=== PATIENT | female | born 1995 | race Two or more races ===

== ENCOUNTER 2017-06-11 09:42 | Outpatient (CLI) | payer OTHER ==
[2017-06-11 10:24] LABS: APPEARANCE,URINE CLOUDY; BILIRUBIN,URINE NEGATIVE (NEGATIVE); GLUCOSE, URINE NEGATIVE (NEGATIVE); KETONES,URINE NEGATIVE (NEGATIVE); LEUKOCYTE ESTERASE,URINE MODERATE (NEGATIVE); NITRITE,URINE NEGATIVE (NEGATIVE); PROTEIN,URINE NEGATIVE (NEGATIVE); URINE SPECIFIC GRAVITY 1.017; UROBILINOGEN,URINE NEGATIVE mg/dL (<2.0)
[2017-06-11 10:29] LABS: AMNISURE (ROM) NEGATIVE (NEGATIVE)
[2017-06-11 10:39] LABS: URINE BARBITURATES SCREEN NEGATIVE; URINE METHADONE SCREEN NEGATIVE; URINE OPIATES LOW NEGATIVE; URINE PHENCYCLIDINE SCREEN NEGATIVE
--- NOTE | 2017-06-11 10:47 | Non Stress Test Report ---
Non Stress Test Datetime Report Generated by CPN: 06/11/2017 10:46 DEMOGRAPHIC EGA NST: 39.3 INDICATION Indication for Study: Ordered by Provider VITAL SIGNS Temperature - NST: 98.7 Pulse - NST: 101 RESP - NST: 18 NBPSYS NST: 122 NBPDIA NST: 76 MONITORING Monitor Explained: Monitor Explained; Test Explained; Patient Verbalized Understanding Time on Monitor: 06/11/2017 09:58 Time off Monitor: 06/11/2017 10:33 NST Duration: 35 NST INTERVENTIONS NST Interventions: PO Hydration; Reposition Patient BABY A: [id number] BABY A Movement : Present Contraction Frequency : None traced Accelerations : 15X15 Decelerations : None Variability : Moderate 6-25bpm NST Review: Meets Criteria for Reactive NST NST Review and Verified By : Antonio Mann RN NST Results: Reactive NST REPORT Report Trigger: Send Report
== END 2017-06-11 10:44 | disposition home or self-care (01) ==
LOC: LC 09:42
PROVIDERS: ATTEND Obstetrics & Gynecology Gynecology
PROC: 4A1HXCZ Monitoring of Products of Conception, Cardiac Rate, External Approach (ICD-10-PCS; principal; 2017-06-11)
DX: Z34.03 Encounter for supervision of normal first pregnancy, third trimester (principal); Z3A.39 39 weeks gestation of pregnancy
CPT/HCPCS: 59025; 80307; 81005; 84112

== ENCOUNTER 2017-06-12 17:45 | Inpatient (IN) | payer OTHER ==
[2017-06-12 18:32] LABS: APPEARANCE,URINE SLIGHTLY-CLOUDY; BILIRUBIN,URINE NEGATIVE (NEGATIVE); GLUCOSE, URINE NEGATIVE (NEGATIVE); KETONES,URINE NEGATIVE (NEGATIVE); LEUKOCYTE ESTERASE,URINE SMALL (NEGATIVE); NITRITE,URINE NEGATIVE (NEGATIVE); PROTEIN,URINE NEGATIVE (NEGATIVE); URINE SPECIFIC GRAVITY 1.004; UROBILINOGEN,URINE NEGATIVE mg/dL (<2.0)
[2017-06-12 18:39] LABS: AMNISURE (ROM) POSITIVE (NEGATIVE)
[2017-06-12 18:49] LABS: URINE BARBITURATES SCREEN NEGATIVE; URINE METHADONE SCREEN NEGATIVE; URINE OPIATES LOW NEGATIVE; URINE PHENCYCLIDINE SCREEN NEGATIVE
[2017-06-12] MEDS ORDERED: RINGERS SOLUTION,LACTATED 1,000 ML IV PRN (18:49)
[2017-06-12] MEDS ORDERED: OXYTOCIN/NORMAL SALINE 20 UNIT/1,000 ML RTUINJ IV PRN ×2 (18:49→22:55)
[2017-06-12] MEDS ORDERED: NALBUPHINE HCL INJ 10 MG/1 ML AMPULE IV PRN (18:50)
[2017-06-12] MEDS ORDERED: PROMETHAZINE HCL INJ 25 MG/1 ML VIAL IV PRN (18:50)
[2017-06-12] MEDS ORDERED: LIDOCAINE 1% INJ-PF (10 MG/ML) 30 ML SDV ONE (19:07)
[2017-06-12] MEDS ORDERED: MISOPROSTOL 0.2 MG TABLET ONE (19:07)
[2017-06-12] MEDS ORDERED: OXYTOCIN/NORMAL SALINE 20 UNIT/1,000 ML RTUINJ ONE ×2 (19:07→20:50)
[2017-06-12 19:31] LABS: ABSOLUTE EOSINOPHILS # (AUTO) 0.1 10^3/uL (0.0-0.6); ABSOLUTE LYMPHOCYTES (AUTO) 1.9 10^3/uL (0.5-4.7); ABSOLUTE MONOCYTES (AUTO) 1.4 10^3/uL (0.1-1.4); ABSOLUTE NEUT (AUTO) 13.1 10^3/uL (1.7-8.2); BASOPHILS % (AUTO) 0.3 % (0-2); EOSINOPHILS % (AUTO) 0.4 % (0-6); HEMATOCRIT 30.8 % (36.0-47.0); HEMOGLOBIN 10.2 g/dL (12.0-15.5); HGB HCT DIFFERENCE -0.2; LYMPHOCYTES % (AUTO) 11.3 % (13-45); MEAN CORPUSCULAR HGB CONC 33.2 g/dL (32.0-36.0); MEAN CORPUSCULAR VOLUME 84 fl (80-97); MONOCYTES % (AUTO) 8.5 % (3-13); RED BLOOD COUNT 3.65 10^6/uL (3.72-5.28); RED CELL DISTRIBUTION WIDTH 13.2 % (11.5-14.0); SEGMENTED NEUTROPHILS % (AUTO) 79.5 % (42-78); WHITE BLOOD COUNT 16.5 10^3/uL (4.0-10.5)
[2017-06-12] MEDS ORDERED: NALBUPHINE HCL INJ 10 MG/1 ML AMPULE ONE (20:50)
[2017-06-12] MEDS ORDERED: FENTANYL/BUPIVACAINE/NS/PF 0 MCG/0 ML RTUINJ EPI ONE (21:26)
[2017-06-12] MEDS ORDERED: BUPIVACAINE HCL 0.25 % INJ/PF (2.5 MG/1 ML) 30 ML VIAL ONE (21:26)
[2017-06-12] MEDS ORDERED: EPHEDRINE SULFATE INJ 50 MG/1 ML AMPULE ONE (21:26)
[2017-06-12] MEDS ORDERED: DIBUCAINE 1% OINTMENT 28 GM TP PRN (22:55)
[2017-06-12] MEDS ORDERED: DIPH/PERTUSS(ACELL)/TETANUS VAC/PF 0.5 ML SYR (>=10YO) IM PRN (22:55)
[2017-06-12] MEDS ORDERED: ZOLPIDEM TARTRATE 5 MG TABLET PO PRN (22:55)
[2017-06-12] MEDS ORDERED: BENZOCAINE/MENTHOL AEROSOL SPRAY 56 ML TOP PRN (22:55)
[2017-06-12] MEDS ORDERED: MEASLES,MUMPS&RUBELLA VACC/PF 0.5 ML VIAL SUBCUT PRN (22:55)
[2017-06-12] MEDS ORDERED: IBUPROFEN 800 MG TABLET PO PRN (22:55)
[2017-06-12] MEDS ORDERED: ACETAMINOPHEN 325 MG TABLET PO PRN (22:56)
[2017-06-12] MEDS ORDERED: ACETAMINOPHEN 325 MG TABLET ONE (22:58)
[2017-06-12] MEDS ORDERED: ONDANSETRON HCL 8 MG TABLET PO PRN (22:58)
[2017-06-12] MEDS ORDERED: DIPHENHYDRAMINE HCL 25 MG CAPSULE PO PRN (22:59)
[2017-06-12] MEDS ORDERED: FAMOTIDINE 20 MG TABLET PO PRN (22:59)
[2017-06-12] MEDS ORDERED: PROMETHAZINE HCL 25 MG TABLET PO PRN (23:00)
[2017-06-12] MEDS ORDERED: HYDROCODONE/ACETAMINOPHEN 5-325 MG TABLET ONE (23:31)
[2017-06-12] MEDS: HYDROCODONE/ACETAMINOPHEN 5-325 MG TABLET PO PRN (23:32)
--- NOTE | 2017-06-12 23:46 | Delivery Summary ---
Del Sum A-C Datetime Report Generated by CPN: 06/12/2017 23:45 DELIVERY PERSONNEL DELIVERY PERSONNEL: [id number] Delivery Doctor:: Dr. Blackman Labor and Delivery Nurse:: Tashi Stewart RN Labor and Delivery Nurse:: Breanna Simon RN Social Studies Teacher/FOOD MIXER REPAIRER: Rosalinaruddy Jean, ST MATERNAL INFORMATION Delivery Anesthesia: None Medications After Delivery: Pitocin Bolus-Please Comment Meds After Delivery Comment: 20 units pitocin in 1000mL NSS Estimated Blood Loss (ml): 150 Maternal Complications: Precipitous Labor (<3hrs) Provider Comments: Pt C_P. Head delivered straight OA. Loose nuchal x 1 reduced. Anterior and posterior shoulder followed by rest of body. Baby placed on mom's abdomen. After 1 min, cord clamped x 2 and cut by FOB. Cord blood collected. Placenta delivered intact with 3VC. Lacs repaired as above. LABOR SUMMARY EDC: 06/15/2017 00:00 No. Babies in Womb: 1 Attempted: No Labor Anesthesia: None LABOR INFORMATION Reason for Induction: Not Applicable Onset of Labor: 06/12/2017 19:25 Complete Dilatation: 06/12/2017 21:56 Oxytocin: Augmentation Group B Beta Strep: negative Antibiotics # of Doses: 0 Antibiotics Time of Last Dose: n/a Steroids Given: None Reason Steroids Not Administered: Not Applicable MEMBRANES Membranes Rupture Method: Spontaneous Rupture of Membranes: 06/11/2017 08:00 Length of Rupture (hr): 38.38 Amniotic Fluid Color: Clear Amniotic Fluid Amount: Small Amniotic Fluid Odor: Normal STAGES OF LABOR Stage 1 hr: 2 Stage 1 min: 31 Stage 2 hr: 0 Stage 2 min: 27 Stage 3 hr: 0 Stage 3 min: 5 Total Time in Labor hr: 3 Total Time in Labor min: 3 VAGINAL DELIVERY Episiotomy: None Laceration #1: Perineal; Vaginal Other Laceration: 1st degree jamie-urethral Laceration Repair: Yes Laceration Repair Note: 1st degree vaginal lac repaired with 2.0 Vicyl in running fashion and periurethral lacs repaired with 3.0 Vicryl in interrupted fashion Sponge Count Correct: Yes Sharps Count Correct: Yes CSECTION DELIVERY Primary Indication: N/A Secondary Indication: N/A CSection Incidence: N/A Labor: N/A Elective: N/A CSection Incision: N/A BABY A INFORMATION Infant Delivery Date/Time: 06/12/2017 22:23 Method of Delivery: Vaginal Born in Route : No : N/A Forceps: N/A Vacuum Extraction: N/A Shoulder Dystocia : No PRESENTATION/POSITION BABY A Presentation: Cephalic Cephalic Presentation: Vertex Vertex Position: occipital anterior Breech Presentation: N/A PLACENTA INFORMATION BABY A Placenta Delivery Time : 06/12/2017 22:28 Placenta Method of Delivery: Spontaneous Placenta Status: Delivered SCORES BABY A Heart Rate 1 min: >100 bpm Resp Effort 1 min: Good Cry Reflex Irritability 1 min: Cough or Sneeze or Pulls Away Muscle Tone 1 min: Active Motion Color 1 min: Blue/Pale SCORE 1 MIN: 8 Heart Rate 5 min: >100 bpm Resp Effort 5 min: Good Cry Reflex Irritability 5 min: Cough or Sneeze or Pulls Away Muscle Tone 5 min: Active Motion Color 5 min: Body [place], Extremities Blue SCORE 5 MIN: 9 INFANT INFORMATION BABY A Gestational Age at Delivery: 39.4 Gestational Status: Full Term- 39- 40.6 Weeks Outcome : Liveborn Infant Condition : Stable Infant Sex: Male IDENTIFICATION BABY A Infant Verification Date/Time: 06/12/2017 23:00 ID Band Number: [id number] Mother's Name Verified: Yes Infant RN Verifying : KQing Wittco,RN Additional Verifying Personnel: [employer] RN WEIGHT/LENGTH BABY A Birthweight (gm): 2840 Weight (lb): 6 Weight (oz): 4 Infant Length (in): 19.75 Infant Length (cm): 50.17 CORD INFORMATION BABY A No. Cord Vessels: 3 Nuchal Cord : Around Neck x1, Loose Cord Blood Taken: Yes-For Eval (Mom's Blood Type - or O+) Infant Suction: Mouth; Nose ASSESSMENT BABY A Infant Complications: None Physical Findings- Other: see nursery assessment Respirations: Appears Normal Skin to Skin: No Coiled Coil Inspector/ALS Called : No Infant Care By: K. Alfred, RN Transferred To: Remains with Mother BABY B INFORMATION : N/A SIGNATURES Signature: with User ID: [email or web address]
--- NOTE | 2017-06-12 23:46 | Warning Signs in Babies ---
VOD Warning Signs Datetime Report Generated by [facility]: 06/12/2017 23:45 VOD#608 -Warning Signs in Babies: Needs to be viewed. (06/11/2017 10:39:Tashi Stewart)
--- NOTE | 2017-06-13 00:51 | Admission Physical ---
Datetime Report Generated by CPN: 06/13/2017 00:50 CURRENT ADMISSION Chief Complaint: Suspected Ruptured Membranes Chief Complaint Other: Was seen 1 day ago for ?LOF. Amnisure neg. Presents with same complaint today and Amnisure pos. Indication for Induction: PROM Indication for Induction: Term, Intrauterine ; No Active Labor; Ruptured Membranes; Induction of Labor Admit Plan: Admit to Unit; Initiate Labor Induction Protocol ALLERGIES Medication Allergies: No Medication Allergies: No Known Allergies (06/12/2017) Medication Allergies: No Known Allergies (06/11/2017) Latex: No Latex Allergies Food Allergies: no Environmental Allergies: no OBSTETRICAL HISTORY EDC: 06/15/2017 00:00 : 2 Para: 1 Livin Gestational Diabetes: No Rh Sensitization: No Incompetent Cervix: No ACE: No Infertility: No ART Treatment: No Uterine Anomaly: No IUGR: No Hx Previous C/S: No Macrosomia: No Hx Loss/Stillborn: No PIH: No Hx : No Placenta Previa/Abruption: No Depression/PP Depression: No PTL/PROM: No Post Hemorrhage: No Current Procedures: Ultrasound; NST Obstetrical History Comments: G1 06/05/2012 born at 36.6 SEE RECORDS Alcohol: No Marijuana : No Cocaine: No Other Illicit Drugs: No Cigarettes: Former Smoker. [id number] MEDICAL HISTORY Diabetes: No Blood Transfusion: No Pulmonary Disease (Asthma, TB): No Breast Disease: No Hypertension: No Slot Attendant Surgery: No Heart Disease: No Hosp/Surgery: Yes Autoimmune Disorder: No Anesthetic Complications: No Kidney Disease: No Abnormal Pap Smear: No Neuro/Epilepsy: No Psychiatric Disorders: No Other Medical Diseases: No Hepatitis/Liver Disease: No Significant Family History: No Varicosities/Phlebitis: No Trauma/Violence : No Thyroid Dysfunction: No INFECTIOUS HISTORY Gonorrhea: No Genital Herpes: No Chlamydia: No Tuberculosis: No Syphilis: No Hepatitis: No HIV/AIDS Exposure: No Rash or Viral Illness: No HPV: No PHYSICAL EXAM General: Normal HEENT: Normal Neurologic: Normal Abdomen: Normal Pelvic Type: Not Done Physical Exam Comments: Cervical exam performed by RN Vital Signs: Reviewed; Within Normal Limits VAGINAL EXAM Dilatation: 3 Effacement: 70 Station: -1 Contraction Comments: q 2-4 min MEMBRANES Membranes: Ruptured Amniotic Fluid Color: Clear FETUS A EGA: 39.4 Monitoring: External US FHR- Baseline: 125 Variability: Moderate 6-25bpm Accelerations: 15X15 Decelerations: None FHR Category: Category I PLANS FOR LABOR AND DELIVERY Labor and Delivery: None Pain Management: Epidural Feeding Preference: Formula Benefit of Breast Feed Discussed: Yes Circumcision: Yes INFORMED CONSENT Signature: with User ID: [email or web address]
[2017-06-13] MEDS: HYDROCODONE/ACETAMINOPHEN 5-325 MG TABLET PO PRN ×3 (06:45→20:07)
[2017-06-13 07:55] LABS: HEMATOCRIT 28.1 % (36.0-47.0); HEMOGLOBIN 9.4 g/dL (12.0-15.5); HGB HCT DIFFERENCE 0.1; MEAN CORPUSCULAR HEMOGLOBIN 28.3 pg (27.0-33.4); MEAN CORPUSCULAR HGB CONC 33.4 g/dL (32.0-36.0); MEAN CORPUSCULAR VOLUME 85 fl (80-97); RED BLOOD COUNT 3.32 10^6/uL (3.72-5.28); RED CELL DISTRIBUTION WIDTH 13.5 % (11.5-14.0); WHITE BLOOD COUNT 20.1 10^3/uL (4.0-10.5)
--- NOTE | 2017-06-13 09:01 | PDOC PROGRESS REPORT ---
Subjective Progress Note for:: 06/13/17 Reason For Visit: Physical Exam - Physical Exam Vital Signs: Temp Pulse Resp BP Pulse Ox 98.6 F 76 16 115/67 99 06/13/17 01:07 06/13/17 01:07 06/13/17 01:07 06/13/17 01:07 06/13/17 01:07 Intake & Output 06/12/17 06/13/17 06/14/17 06:59 06:59 06:59 Weight 71.6 kg - Obstetrical Exam Fundal Height: u/u - u/2 Tender: No Adhexa: normal Result Laboratory Results: 06/13/17 07:21 06/12/17 06/12/17 06/12/17 18:15 19:10 19:10 WBC 16.5 H RBC 3.65 L Hgb 10.2 L Hct 30.8 L MCV 84 MCH 28.0 MCHC 33.2 RDW 13.2 Plt Count 203 Seg Neutrophils % 79.5 H Lymphocytes % 11.3 L Monocytes % 8.5 Eosinophils % 0.4 Basophils % 0.3 Absolute Neutrophils 13.1 H Absolute Lymphocytes 1.9 Absolute Monocytes 1.4 Absolute Eosinophils 0.1 Absolute Basophils 0.0 Urine Color YELLOW Urine Appearance SLIGHTLY-CLOUDY Urine pH 7.0 Ur Specific [place] 1.004 Urine Protein NEGATIVE Urine Glucose (UA) NEGATIVE Urine Ketones NEGATIVE Urine Blood SMALL H Urine Nitrite NEGATIVE Ur Leukocyte Esterase SMALL H Blood Type O POSITIVE Antibody Screen NEGATIVE 06/13/17 07:21 WBC 20.1 H RBC 3.32 L Hgb 9.4 L Hct 28.1 L MCV 85 MCH 28.3 MCHC 33.4 RDW 13.5 Plt Count 184 Seg Neutrophils % Lymphocytes % Monocytes % Eosinophils % Basophils % Absolute Neutrophils Absolute Lymphocytes Absolute Monocytes Absolute Eosinophils Absolute Basophils Urine Color Urine Appearance Urine pH Ur Specific [place] Urine Protein Urine Glucose (UA) Urine Ketones Urine Blood Urine Nitrite Ur Leukocyte Esterase Blood Type Antibody Screen
[2017-06-13] MEDS: PRENATAL VITAMIN W DHA CAPSULE PO SCH (09:33)
[2017-06-13] MEDS: FERROUS SULFATE 325 MG TABLET PO SCH ×2 (09:34→18:05)
[2017-06-13] MEDS: DOCUSATE SODIUM 100 MG CAPSULE PO SCH ×2 (09:34→18:05)
[2017-06-13 10:40] LABS: ADD HIVPANEL? NO; HIV (1 AND 2) ANTIBODY NEGATIVE (NEGATIVE)
[2017-06-14 09:22] VITALS: BP 110/70
[2017-06-14] MEDS: PRENATAL VITAMIN W DHA CAPSULE PO SCH (09:39)
[2017-06-14] MEDS: DOCUSATE SODIUM 100 MG CAPSULE PO SCH (09:39)
[2017-06-14] MEDS: FERROUS SULFATE 325 MG TABLET PO SCH (09:39)
[2017-06-14] MEDS: HYDROCODONE/ACETAMINOPHEN 5-325 MG TABLET PO PRN (09:49)
--- NOTE | 2017-06-14 11:46 | PDOC DISCHARGE SUMMARY ---
Final Diagnosis Discharge Date: 06/14/17 - Final Diagnosis (1) Anemia due to blood loss, acute Is this a current diagnosis for this admission?: Yes (2) Normal vaginal delivery Is this a current diagnosis for this admission?: Yes Discharge Data - Discharge Medication Home Medications: Ferrous Sulfate [Feosol 325 mg Tablet] 325 mg PO BID #60 tablet 06/14/17 Hydrocodone/Acetaminophen [[place] 5-325 mg Tablet] 1 tab PO Q4HP PRN #20 tablet 06/14/17 Ibuprofen [Motrin 800 mg Tablet] 800 mg PO Q8HP PRN #60 tablet 06/14/17 Prenat 115/Iron Fum/Folic/Dss [ 19 Tablet] 1 each PO DAILY #100 tablet 06/14/17 Gestational Age: 39+4 Reason(s) for Admission: PROM Procedures: NST Intrapartum Procedure(s): Spontaneous Vaginal Delivery Complication(s): Laceration-Vaginal, Laceration-Periurethral - Diagnosis Test Laboratory: Temp Pulse Resp BP Pulse Ox 98.2 F 70 16 110/70 100 06/14/17 08:31 06/14/17 08:31 06/14/17 08:31 06/14/17 08:31 06/14/17 08:31 06/12/17 06/12/17 06/13/17 18:15 19:10 07:21 RBC 3.65 L 3.32 L Hgb 10.2 L 9.4 L Hct 30.8 L 28.1 L Urine Opiates Screen NEGATIVE - Discharge information/Instructions Discharge Activity: Balance Activity w/Rest, Pelvic Rest Discharge Diet: Regular Disposition: HOME, SELF-CARE Follow up with: [facility] in: 4, Weeks
== END 2017-06-14 14:20 | disposition home or self-care (01) | DRG 775 ==
LOC: LC 17:45 → LR 18:47 → 2S 06-13 00:49
PROVIDERS: ADMIT Obstetrics & Gynecology; ATTEND Obstetrics & Gynecology
PROC: 10E0XZZ Delivery of Products of Conception, External Approach (ICD-10-PCS; principal; 2017-06-11)
PROC: 0HQ9XZZ Repair Perineum Skin, External Approach (ICD-10-PCS; 2017-06-11)
PROC: 4A1HXCZ Monitoring of Products of Conception, Cardiac Rate, External Approach (ICD-10-PCS; 2017-06-11)
DX: O42.12 Full-term premature rupture of membranes, onset of labor more than 24 hours following rupture (principal); D62 Acute posthemorrhagic anemia; O99.02 Anemia complicating childbirth; O69.81X0 Labor and delivery complicated by cord around neck, without compression, not applicable or unspecified; O70.0 First degree perineal laceration during delivery; O62.3 Precipitate labor; Z3A.39 39 weeks gestation of pregnancy; Z87.891 Personal history of nicotine dependence; Z37.0 Single live birth
CPT/HCPCS: 36415; 80307; 81005; 84112; 85025; 85027; 86592; 86701; 86850; 86900; 86901; J2300; J2590; J3490; Q0114